=== PATIENT | female | born 1975 | race African-American/Black ===

== ENCOUNTER 2018-05-20 23:48 | Emergency (ER) | payer OTHER ==
[2018-05-21 00:07] VITALS: BP 149/87; PULSE 74; TEMP 97.9; BMI 35.2
--- NOTE | 2018-05-21 00:42 | PDOC ---
Attending Attestation - HPI HPI: 05/21/18 01:40 The patient is a 42-year-old female with a past medical history significant for HTN presents to the emergency department with left lower extremity injury. The patient reports she was ambulating up the stairs when she tripped and hit her foot on the stairs. The patient reports she was able to ambulate following the incident. The patient states initially the leg was swollen and bruised. The patient states over the week the swelling had went down; however the bruising on foot had changes color. Denies fever, chills, chest pain, SOB urinary changes or changes in bowel habits. - Physicial Exam PE: 05/21/18 01:40 GENERAL: Awake, alert, and fully oriented, in no acute distress HEAD: No signs of trauma EYES: PERRLA, EOMI, sclera anicteric, conjunctiva clear ENT: Auricles normal inspection, hearing grossly normal, nares patent, oropharynx clear without exudates. Moist mucosa NECK: Normal ROM, supple, no lymphadenopathy, JVD, or masses LUNGS: Breath sounds equal, clear to auscultation bilaterally. No wheezes, and no crackles HEART: Regular rate and rhythm, normal S1 and S2, no murmurs, rubs or gallops ABDOMEN: Soft, nontender. No guarding, no rebound. No masses EXTREMITIES: +Left lower extremity hematoma tenderness to palpation proximal anterior tibial surface below the plateau, with different stages of healing. No bony deformities. Left lower malleolus well healed incision and tenderness to palpation the distal fibula, pain reproducible with dorsiflexion. no soft tissue swelling. Anterior posterior drawer negative. Brisk cap refill. 5/5 strength. Pedial pulse intact. NEUROLOGICAL: Cranial nerves II through XII grossly intact. Normal speech. SKIN: Warm, Dry, normal turgor, no rashes or lesions noted. - Medical Decision Making 05/21/18 01:38 Documentation prepared by Glo Messer, acting as medical data entry clerk for Emely Grant DO. <Glo Messer - Last Filed: 05/21/18 01:38> - Resident Resident Name: Codi Cam - ED Attending Attestation I have performed the following: I have examined & evaluated the patient, The case was reviewed & discussed with the resident, I agree w/resident's findings & plan, Exceptions are as noted - Medical Decision Making 05/21/18 00:41 I, Dr. Emely Grant, DO, attest that this document has been prepared under my direction and personally reviewed by me in its entirety. I further attest, that it accurately reflects all work, treatment, procedures and medical decision -making performed by me. 05/21/18 00:54 a/p: 42yo female with LLE pain -local trauma to the LLE with small hematoma to the anterior tibia proximally -ttp along lateral malleolus -will obtain xrays -pt has a ankle brace at home she can use -wants to ensure her hardware is in place 05/21/18 02:07 xrays reviewed-no acute fx visualized, hardware in place pt stable for dc to home and follow up with her Dr. Joshua <Emely Grant - Last Filed: 05/21/18 02:08>
--- NOTE | 2018-05-21 00:44 | PDOC ---
History of Present Illness - General Chief Complaint: Pain, Acute Stated Complaint: LT LEG PAIN/BRUISE Time Seen by Provider: 05/21/18 00:24 - History of Present Illness Initial Comments: Melvina Bolton is a 42yo woman who presents for evaluation of a LLE injury that occurred on 05/11/18. She states that she was walking up stairs at work and tripped, hitting her cheng on the stair above. She continued to walk throughout the day, and she has been able to walk since the injury occurred. Initially, her cheng became swollen and very bruised, but the swelling went down over the past 1.5 weeks. The bruising also changed, initially black and blue, now a purple-red color. She also has continued pain in the lateral ankle. She states that she had a previous fracture-dislocation in 2014 that required surgical repair, and she was concerned about the continued pain. She wanted to make sure there was no problem with the cholo. Ms Bolton has been otherwise well. She has a history of HTN, controlled with a diuretic, and takes no other medications at home. She has been using ibuprofen twice daily as needed for pain since the injury with adequate relief of her pain. Past History - Past Medical History Home Medications: Ambulatory Orders NK [No Known Home Medication] 05/21/18 - Suicide/Smoking/Psychosocial Hx Smoking History: Unknown if ever smoked Hx Alcohol Use: No Drug/Substance Use Hx: No Review of Systems - Review of Systems Comments:: General: No fevers, no chills, no weight or appetite change, no malaise HEENT: No changes in vision, no changes in hearing, no congestion, no sore throat CV: No chest pain, no palpitations, no LE edema Pulm: No SOB, no cough, no wheezing GI: No nausea or vomiting, no change in bowel habits, no melena : No frequency, no urgency, no dysuria Musc: No back pain, no joint swelling, no recent injury Skin: No rash, no lesions, no erythema Endo: No excessive thirst, no heat/cold intolerance Heme: No unusual bruising or bleeding, no swollen glands Neuro: No syncope, no numbness/tingling, no focal weakness Vasc: No claudication Psych: No recent change in mood, no SI or HI *Physical Exam - Vital Signs Last Vital Signs Temp Pulse Resp BP Pulse Ox 97.9 F 74 20 149/87 99 05/21/18 00:00 05/21/18 00:00 05/21/18 00:00 05/21/18 00:00 05/21/18 00:00 - Physical Exam Comments: General: Comfortable, no acute distress HEENT: PERRL, EOMI, MMM, voice normal, normal neck ROM, no LAD Cards: RRR Pulm: Comfortable on room air Abd: Soft, nontender, nondistended Ext: LLE with 3cm red-purple bruise on proximal anterior cheng. TTP over bruise. Trace BLE edema. ROM intact. Strength 5/5 and equal bilaterally. Ankle pain reproduced with lateral ankle rotation and dorsiflexion against resistance Vasc: Extremities WWP. Palpable radial and pedal pulses bilaterally Neuro: A&Ox3, CN grossly intact, normal speech, motor/sensory grossly intact and symmetric Psych: Mood appropriate to situation Moderate Sedation - Procedure Monitoring Vital Signs: Procedure Monitoring Vital Signs Temperature 97.9 F 05/21/18 00:00 Pulse Rate 74 05/21/18 00:00 Respiratory Rate 20 05/21/18 00:00 Blood Pressure 149/87 05/21/18 00:00 O2 Sat by Pulse Oximetry (%) 99 05/21/18 00:00 Medical Decision Making - Medical Decision Making 05/21/18 00:37 Melvina Bolton is a 42yo woman with a PMH of HTN and previous surgical repair of a L ankle fracture who presents following an injury to her LLE on 05/11/18. She was concerned that the bruise on her cheng and ankle pain have not yet resolved. She is able to walk without difficulty, and she states that the swelling has resolved and bruising has changed from black/blue to a purplish red color. - Injury appears to be healing well - Still reports continued pain in the lateral ankle. Will xray to make sure surgical pins/cholo are in place and not the cause of her pain 05/21/18 02:05 - Xrays reviewed. No acute injury. Hardware in place - Discussed with Pt. Advised regarding home care, follow up. She understands and agrees with the plan. Will d/c home with ortho follow up. Seen and discussed with Dr Grant. Codi Cam PGY1 *DC/Admit/Observation/Transfer Diagnosis at time of Disposition: Left leg pain - Discharge Dispostion Disposition: HOME Condition at time of disposition: Stable Decision to Admit order: No - Referrals Referrals: Nickolas Joshua [Non Staff, Medical] - - Patient Instructions Printed Discharge Instructions: DI for Ankle Pain Additional Instructions: Discharge Instructions: You were seen in the emergency department for a left leg injury. The injury appears to be healing well. You had an xray to make sure your surgical cholo/pins were still in place, and there was no problem or displacement seen on xray. Home Care and Follow Up: - You may use over the counter medications as needed for pain at home. 650- 1000mg acetaminophen (Tylenol) or 600mg ibuprofen (Motrin or Advil) can be used every 6-8 hours. If needed for continued pain, these medications may be alternated every 3-4 hours. For example, you received ibuprofen at 9pm, so you may take acetaminophen at midnight, ibuprofen at 3am, acetaminophen at 6am. - You may wish to use a brace or compression on your ankle to help with pain and swelling while you are at work. - Try to keep your ankle elevated as much as possible when not walking at work. - Try using an ice pack for 20 minutes every hour or a heating pad for additional pain control. - Do not stop moving around. As much as you can tolerate, continue to do light exercise and stretching exercises. Increase your activity level as much as you can tolerate daily. - If your pain does not improve over the next week, make an appointment to see your primary doctor or your orthopedic surgeon (Dr Joshua). - Seek immediate medical care if you have significant worsening of your symptoms , you are unable to move your legs, you have numbness/tingling in your legs/foot , or you are unable to bear weight. - Post Discharge Activity
== END 2018-05-21 02:10 | disposition home or self-care (01) ==
LOC: JER 23:48
DX: S80.12XA Contusion of left lower leg, initial encounter (principal); W10.8XXA Fall (on) (from) other stairs and steps, initial encounter; Y93.89 Activity, other specified; Y92.29 Other specified public building as the place of occurrence of the external cause; Y99.0 Civilian activity done for income or pay; I10 Essential (primary) hypertension
CPT/HCPCS: 73590-TC-LT-FY; 73610-TC-LT-FY; 99282-25